=== PATIENT | female | born 1990 | race Caucasian/White ===

== ENCOUNTER 2016-12-09 09:03 | Inpatient (IN) | payer BC, SELFPAY ==
[2016-12-09] MEDS ORDERED: Ondansetron 4 MG/2 ML SDV IVPUSH PRN ×2 (12:20→13:15)
[2016-12-09] MEDS ORDERED: Nalbuphine 20 MG/1 ML Amp IVPUSH PRN (12:20)
[2016-12-09] MEDS ORDERED: Aluminum Hydroxide/Magnesium Hydroxide/Simethicone Susp 30 ML Cup PO PRN (12:20)
[2016-12-09] MEDS ORDERED: Lidocaine 1% 50 ML MDV INJECT PRN (12:26)
[2016-12-09] MEDS ORDERED: Oxytocin/Lactated Ringers 10 UNIT/1,000 ML BAG IV SCH ×2 (12:30)
[2016-12-09] MEDS ORDERED: ePHEDrine 50 MG/ML SDV IVPUSH PRN (13:15)
[2016-12-09] MEDS ORDERED: Bupivacaine/fentaNYL/NS 100 ML Bag EPIDUR SCH (13:15)
[2016-12-09] MEDS ORDERED: fentaNYL 100 MCG/2 ML SDV EPIDUR ONE (13:17)
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
[2016-12-09] MEDS: Lactated Ringers 1,000 ML IV SCH ×4 (18:12→20:46)
[2016-12-10] MEDS: Lactated Ringers 1,000 ML IV SCH (00:25)
[2016-12-10] MEDS ORDERED: Measles, Mumps & Rubella Vaccine 0.5 ML SDV SUBCUT ONE (03:05)
--- NOTE | 2016-12-10 03:11 | PCM.SN ---
- Free Text/Narrative Note: 26-year-old 2 now para 2002 who was admitted on 12/09/2016 in early active labor. Patient been having contractions for about a week but they intensified to the point where the were not tolerable. She was noted to have slight progression of her cervical dilation and was admitted in labor and delivery. She progressed slowly to approximately 4 cm and then had an epidural placed for analgesia. She progressed to complete after artificial rupture membranes. Amniotic fluid was clear. She delivered a viable, davis, female with Apgars of 8 and 9, a weight of 3030 g (6 pounds 10.9 ounces) in a direct occiput anterior position over an intact perineum. The baby was placed on mom's abdomen and mouth and nose were suctioned. The cord was clamped 2 and cut by the father. Cord had 3 vessels present. Cord blood was obtained. Placenta delivered in an intact incomplete state and a Ivon presentation. It was discarded per patient desire. Estimated blood loss was 100 mL. Pitocin was administered by IV after delivery of the baby. Patient plans to bottlefeed. Condition is good
[2016-12-10] MEDS ORDERED: Witch Hazel Medicated Pads 100/Jar TOP PRN (03:29)
[2016-12-10] MEDS ORDERED: Acetaminophen 325 MG Tab PO PRN (03:29)
[2016-12-10] MEDS ORDERED: Docusate Sodium 100 MG Cap PO PRN (03:29)
[2016-12-10] MEDS ORDERED: Benzocaine/Menthol 20%-0.5% Spray 56 GM Canister TOP PRN (03:29)
[2016-12-10] MEDS: Ibuprofen 600 MG Tab PO PRN ×3 (04:08→18:04)
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
[2016-12-10] MEDS ORDERED: Prenatal Multivitamin with Calcium/Folic Acid/Iron Tab PO SCH (09:00)
--- NOTE | 2016-12-10 10:28 | PCM48HPAN ---
Post Anesthesia Note - EVALUATION WITHIN 48HRS OF ANESTHETIC Vital Signs in Normal Range: Yes Patient Participated in Evaluation: Yes Respiratory Function Stable: Yes Airway Patent: Yes Cardiovascular Function Stable: Yes Hydration Status Stable: Yes Pain Control Satisfactory: Yes Nausea and Vomiting Control Satisfactory: Yes Mental Status Recovered: Yes
[2016-12-10] MEDS ORDERED: Bupivacaine 0.25% 10 ML SDV ONE (22:22)
[2016-12-11] MEDS: Ibuprofen 600 MG Tab PO PRN (05:35)
[2016-12-11 06:01] VITALS: BP 118/75
--- NOTE | 2016-12-11 07:44 | PCM.DCSUM1 ---
Discharge Summary - Hospital Course Free Text/Narrative:: 26-year-old 2 now para 2002 who was admitted on 12/09/2016 in early active labor. Patient been having contractions for about a week but they intensified to the point where the were not tolerable. She was noted to have slight progression of her cervical dilation and was admitted in labor and delivery. She progressed slowly to approximately 4 cm and then had an epidural placed for analgesia. She progressed to complete after artificial rupture membranes. Amniotic fluid was clear. She delivered a viable, davis, female infant with Apgars of 8 and 9, a weight of 3030 g (6 pounds 10.9 ounces) in a direct occiput anterior position over an intact perineum. The baby was placed on mom's abdomen and mouth and nose were suctioned. The cord was clamped 2 and cut by the father. Cord had 3 vessels present. Cord blood was obtained. Placenta delivered in an intact incomplete state and a Ivon presentation. It was discarded per patient desire. Estimated blood loss was 100 mL. Pitocin was administered by IV after delivery of the baby. Patient plans to bottlefeed. patient's done well. Her vital signs were stable. She's been afebrile. She is ambulating well, has minimal lochia and voiding without problems. She is desiring to be discharged. - Discharge Data Discharge Date: 12/11/16 Discharge Disposition: Home, Self-Care 01 Condition: Good - Patient Instructions Diet: Regular Diet as Tolerated Activity: As Tolerated (No intercourse or tampons until bleeding resolves) Driving: May Drive Today Showering/Bathing: May Shower (May take a bath) Notify Provider of: Fever, Increased Pain, Swelling and Redness, Nausea and/or Vomiting - Discharge Plan Home Medications: Home Meds Famotidine [Acid Air Chief Marshal] 10 mg PO DAILY 12/02/16 [History] Acetaminophen [Tylenol Extra Strength] 500 mg PO ASDIRECTED PRN 12/09/16 [ History] Ibuprofen [IJD: Ibuprofen] 600 mg PO Q4H PRN #30 tablet 12/11/16 [Rx] Referrals: Mynor Whitney MD [Primary Care Provider] - ([facility] weeks[facility] - Discharge Summary/Plan Comment DC Time >30 min.: No Discharge Summary/Plan Comment: Discharge instructions: 1. Discharge home 2. Regular, high fiber diet. 3. Routine cautions given some concern increased pain, bleeding, temperature, signs/symptoms of DVT/PE. 4. Medications per home medication was printed, discussed with and given to the patient 5. Return to clinic Dr. Whitney-6 weeks Diagnosis: Term -delivered Condition: Good - Patient Data Vitals - Most Recent: Last Vital Signs Temp 36.5 C 12/11/16 05:38 Pulse 78 12/11/16 05:38 Resp 15 12/11/16 05:38 BP 118/75 12/11/16 05:38 Pulse Ox 97 12/11/16 05:38 Weight - Most Recent: 85.457 kg I&O - Last 24 hours: Intake & Output 12/10/16 12/11/16 12/11/16 22:59 06:59 14:59 Intake Total 120 Balance 120 Lab Results - Last 24 hrs: Laboratory Results - last 24 hr 12/11/16 Range/Units 05:35 WBC 12.16 H (3.98-10.04) K/mm3 RBC 4.35 (3.98-5.22) M/mm3 Hgb 12.8 (11.2-15.7) gm/L Hct 38.6 (34.1-44.9) % MCV 88.7 (79.4-94.8) fl MCH 29.4 (25.6-32.2) pg MCHC 33.2 (32.2-35.5) g/dl RDW Std Deviation 44.3 (36.4-46.3) fL Plt Count 188 (182-369) K/mm3 MPV 10.4 (9.4-12.3) fl Med Orders - Current: Current Medications Acetaminophen (Tylenol) 650 mg PO Q4H PRN PRN Reason: mild pain or fever Benzocaine/Menthol (Dermoplast Pain Relief [place]) 0 gm TOP ASDIRECTED PRN PRN Reason: Perineal Comfort Measure Last Admin: 12/10/16 04:08 Dose: 1 canister Docusate Sodium (Colace) 100 mg PO BID PRN PRN Reason: Constipation Ibuprofen (Motrin) 600 mg PO Q4H PRN PRN Reason: Mild pain or fever Last Admin: 12/11/16 05:35 Dose: 600 mg Prenat Multivit/[place]/Iron/Folic Ac ( Plus Iron) 1 each PO DAILY CATIE Last Admin: 12/10/16 10:09 Dose: 1 each Witch Ree (Tucks) 1 pad TOP ASDIRECTED PRN PRN Reason: Hemorrhoid pain Last Admin: 12/10/16 04:09 Dose: 1 container Discontinued Medications Al Hydroxide/Mg Hydroxide (Mag-Al Plus) 30 ml PO Q8H PRN PRN Reason: Heartburn Last Admin: 12/09/16 17:19 Dose: 30 ml Bupivacaine HCl (Sensorcaine-Mpf 0.25%) 10 ml .ROUTE .STK-MED ONE Stop: 12/10/16 22:23 Ephedrine Sulfate (Ephedrine Sulfate) 5 mg IVPUSH ASDIRECTED PRN PRN Reason: Hypotension Fentanyl (Sublimaze) 100 mcg EPIDUR ONETIME ONE Stop: 12/09/16 13:18 Last Admin: 12/09/16 19:06 Dose: 100 mcg Fentanyl/Bupivacaine HCl (Fentanyl/Bupivacaine/Ns 2 Mcg-0.125% 100 Ml) 100 ml EPIDUR ASDIRECTED CATIE Last Admin: 12/09/16 19:05 Dose: 100 ml Lactated Ringer's (Ringers, Lactated) 1,000 mls @ 100 mls/hr IV ASDIRECTED CATIE Last Admin: 12/10/16 00:25 Dose: 500 mls/hr Oxytocin/Lactated Ringer's (Pitocin In Lr 10 Units/1,000 Ml) 10 unit in 1,000 mls @ 12 mls/hr IV TITRATE CATIE; 2 MUNITS/MIN PRN Reason: Protocol Oxytocin/Lactated Ringer's (Pitocin In Lr 10 Units/1,000 Ml) 10 unit in 1,000 mls @ 500 mls/hr IV .CONTINUOUS CATIE Last Admin: 12/10/16 02:41 Dose: 500 mls/hr Lidocaine HCl (Xylocaine 1%) 50 ml INJECT ONETIME PRN PRN Reason: perineal repair Measles/Mumps/Rubella Vaccine Live (M-M-R Ii Vaccine) 0.5 ml SUBCUT .ONCE ONE Stop: 12/10/16 03:06 Last Admin: 12/10/16 04:09 Dose: 0.5 ml Nalbuphine HCl (Nubain) 10 mg IVPUSH Q2H PRN PRN Reason: Pain (moderate 4-6) Ondansetron HCl (Zofran) 4 mg IVPUSH Q4H PRN PRN Reason: Nausea/Vomiting Ondansetron HCl (Zofran) 4 mg IVPUSH ONETIME PRN PRN Reason: Nausea/Vomiting *Q Meaningful Use (DIS) - VTE *Q VTE Criteria *Q: - Stroke *Q Stroke Criteria *Q: - AMI *Q AMI Criteria *Q:
== END 2016-12-11 09:38 | disposition home or self-care (01) | DRG 560 ==
LOC: JD.OBCHECK 09:03 → JD.OB 09:40 → JD.OBCHECK 12:19 → JD.OB 12:20 → OBSVTOIN 12-10 02:41 → JD.OB 12-10 02:41
PROVIDERS: ADMIT Obstetrics & Gynecology; ATTEND Obstetrics & Gynecology
PROC: 10E0XZZ Delivery of Products of Conception, External Approach (ICD-10-PCS; principal; 2016-12-10)
PROC: 10907ZC Drainage of Amniotic Fluid, Therapeutic from Products of Conception, Via Natural or Artificial Opening (ICD-10-PCS; 2016-12-10)
PROC: 00HU33Z Insertion of Infusion Device into Spinal Canal, Percutaneous Approach (ICD-10-PCS; 2016-12-10)
PROC: 3E0R3CZ (ICD-10-PCS; 2016-12-10)
PROC: 3E0234Z Introduction of Serum, Toxoid and Vaccine into Muscle, Percutaneous Approach (ICD-10-PCS; 2016-12-10)
DX: O80 Encounter for full-term uncomplicated delivery (principal); Z3A.39 39 weeks gestation of pregnancy; Z37.0 Single live birth; Z23 Encounter for immunization
CPT/HCPCS: 01967; 36415; 85025; 85027; 90707; A9270-GY; J2590; J3010; J7120

== ENCOUNTER 2018-10-29 06:03 | Emergency (ER) | payer BC ==
[2018-10-29 06:55] VITALS: BP 119/62
[2018-10-29] MEDS ORDERED: Sodium Chloride 0.9% 10 ML Syringe FLUSH PRN (07:02)
[2018-10-29] MEDS ORDERED: Ondansetron 4 MG/2 ML SDV IVPUSH ONE (07:03)
[2018-10-29] MEDS ORDERED: HYDROmorphone 1 MG/ML Syringe IVPUSH ONE (07:04)
[2018-10-29] MEDS ORDERED: Ketorolac 30 MG/ML SDV IVPUSH ONE (07:04)
[2018-10-29] MEDS ORDERED: Sodium Chloride 0.9% 1,000 ML IV SCH (07:15)
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
--- NOTE | 2018-10-29 08:37 | CT ---
CT abdomen and pelvis Technique: Multiple axial sections were obtained from above the dome of the diaphragm inferiorly through the pubic symphysis. Intravenous contrast and oral contrast not utilized. Study has been performed as a ureteral stone protocol. Findings: Right kidney is swollen with surrounding inflammatory change. Moderately prominent right-sided hydronephrosis is seen. Right ureter is dilated down to the UVJ. These findings are caused by an obstructing 5.6 mm stone within the distal right ureter at the UVJ. No other abnormal ureteral calcifications are seen. No abnormal renal calculi are seen. Small portion of the visualized lung bases show nothing acute. Noncontrast appearance of the liver contains no focal abnormality. Surgical clips are seen from prior cholecystectomy. Spleen appears within normal limits. Adrenal glands show no nodule. Pancreas is within normal limits. Aorta shows no aneurysm. No retroperitoneal adenopathy or mesenteric abnormalities are seen. Small fat-containing umbilical hernia is noted. Appendix not visualized. No pelvic mass or adenopathy is seen. No free fluid or inflammatory change is seen. Impression: 1. 5.6 mm obstructing stone within the distal right ureter at the UVJ. 2. Other incidental findings as noted above. Diagnostic code #3
== END 2018-10-29 09:00 | disposition home or self-care (01) ==
LOC: JD.ED 06:03
DX: N13.2 Hydronephrosis with renal and ureteral calculous obstruction (principal); Z90.49 Acquired absence of other specified parts of digestive tract
CPT/HCPCS: 36415; 74176; 80053; 81001; 83690; 84703; 85025; 96361; 96374; 96375; 99284; J1170; J1885; J2405; J7040